=== PATIENT | female | born 1950 | race African-American/Black ===

== ENCOUNTER 2019-04-19 21:14 | Emergency (ER) | payer MEDICARE, MEDICAID ==
[~2019-04-19] VITALS: Ht 157.5 cm; Wt 82.0 kg
[2019-04-19 21:22] VITALS: BP 166/93
[2019-04-19] MEDS ORDERED: IBUPROFEN 600MG TABLET PO ONE (22:45)
[2019-04-19] MEDS: TETANUS, DIPHTHERIA, PERTUSSIS VAC/PF 0.5ML (>7YR OLD) IM ONE (23:02)
[2019-04-19] MEDS: KETOROLAC 30MG/ML VIAL IM ONE (23:11)
== END 2019-04-19 23:16 | disposition home or self-care (01) ==
LOC: ER 21:14
DX: S60.410A Abrasion of right index finger, initial encounter (principal); F12.10 Cannabis abuse, uncomplicated; J45.909 Unspecified asthma, uncomplicated; Z98.890 Other specified postprocedural states; Z88.6 Allergy status to analgesic agent; Z88.8 Allergy status to other drugs, medicaments and biological substances; Z96.659 Presence of unspecified artificial knee joint; W26.0XXA Contact with knife, initial encounter; Y93.89 Activity, other specified; Y92.89 Other specified places as the place of occurrence of the external cause; Y99.8 Other external cause status
CPT/HCPCS: 90471; 90715; 96372; 99283; J1885

== ENCOUNTER 2020-07-20 02:57 | Emergency (ER) | payer MEDICARE, MEDICAID ==
[~2020-07-20] VITALS: Ht 167.6 cm; Wt 78.0 kg
[2020-07-20 04:31] LABS: BG BASE EXCESS 2.3 mmol/L (-2.0-2.0); BG CARBOXYHEMOGLOBIN 0.8 % (0.5-1.5); BG DEOXYHEMOGLOBIN 6.5 % (0.0-5.0); BG HCO3 ACT 27.8 mmol/L (22.0-26.0); BG METHEMOGLOBIN 0.5 % (0.0-1.5); BG OXYGEN SATURATION 93.4 % (92.0-98.5); BG OXYHEMOGLOBIN 92.2 % (94.0-97.0); BG PCO2 46.5 mmHg (35.0-45.0); BG PH 7.394 (7.350-7.450); BG SAMPLE SITE RIGHT RADIAL; BG TOTAL HEMOGLOBIN 13.6 g/dL (12.0-18.0); BG VENT MODE ROOM AIR
[2020-07-20 05:00] VITALS: BP 122/71
== END 2020-07-20 05:27 | disposition home or self-care (01) ==
LOC: ER 03:24
DX: T59.91XA Toxic effect of unspecified gases, fumes and vapors, accidental (unintentional), initial encounter (principal); G47.00 Insomnia, unspecified; Y92.019 Unspecified place in single-family (private) house as the place of occurrence of the external cause; Z88.8 Allergy status to other drugs, medicaments and biological substances; Z96.659 Presence of unspecified artificial knee joint
CPT/HCPCS: 36600; 82375; 82805; 99283

== ENCOUNTER 2020-07-23 17:01 | Emergency (ER) | payer MEDICARE, MEDICAID ==
[~2020-07-23] VITALS: Ht 167.6 cm; Wt 77.0 kg
[2020-07-23] MEDS ORDERED: HYDROCODONE/ACETAMINOPHEN 5/325MG TABLET PO ONE (17:30)
[2020-07-23 19:56] VITALS: BP 142/79
== END 2020-07-23 20:00 | disposition home or self-care (01) ==
LOC: ER 17:04
DX: S09.8XXA Other specified injuries of head, initial encounter (principal); S40.012A Contusion of left shoulder, initial encounter; S60.222A Contusion of left hand, initial encounter; W01.0XXA Fall on same level from slipping, tripping and stumbling without subsequent striking against object, initial encounter; Y93.9 Activity, unspecified; Y92.9 Unspecified place or not applicable; Z88.8 Allergy status to other drugs, medicaments and biological substances; Z98.890 Other specified postprocedural states
CPT/HCPCS: 73030; 73130; 93005; 99285

== ENCOUNTER 2020-07-30 04:06 | Emergency (ER) | payer MEDICARE, MEDICAID ==
[~2020-07-30] VITALS: Ht 167.6 cm; Wt 75.0 kg
[2020-07-30] MEDS ORDERED: ACETAMINOPHEN 500MG TABLET PO ONE (04:30)
[2020-07-30] MEDS ORDERED: MORPHINE SULFATE 4 MG/ML CPJ (NOT FOR IM USE) IV ONE (04:30)
[2020-07-30] MEDS ORDERED: ONDANSETRON HCL 4MG/2ML INJ IV ONE (04:30)
[2020-07-30 07:02] LABS: CHLORIDE 109 mEq/L (98-107)
[2020-07-30 07:04] LABS: BASOPHILS % 0.5 % (0.0-2.0); EOSINOPHILS % 1.9 % (0.0-5.0); HEMATOCRIT. 40.5 % (36.0-48.0); HEMOGLOBIN. 12.8 g/dL (12.0-16.0); MEAN CORPUSCULAR HEMOGLOBIN 28.3 pg (28.0-32.0); MEAN CORPUSCULAR VOLUME 89.5 fL (81.0-99.0); MEAN PLATELET VOLUME 8.7 fl (7.4-10.4); MONOCYTES % 8.7 % (2.0-8.0); NEUTROPHILS % 39.9 % (40.0-76.0); PLATELET 224 x1000/uL (130-400); RED BLOOD CELL COUNT 4.52 mill/uL (4.2-5.4); RED CELL DISTRIBUTION WIDTH 16.6 % (11.6-14.6)
[2020-07-30] MEDS ORDERED: IBUPROFEN 600MG TABLET PO ONE (08:45)
[2020-07-30 09:28] LABS: CLARITY URINE CLEAR (CLEAR); COLOR URINE YELLOW (YELLOW); KETONES URINE NEGATIVE (NEGATIVE); LEUKOCYTE ESTERASE URINE TRACE (NEGATIVE); NITRITE URINE NEGATIVE (NEGATIVE); OCCULT BLOOD URINE NEGATIVE (NEGATIVE); PROTEIN URINE NEGATIVE (NEGATIVE); SPECIFIC GRAVITY URINE 1.008 (1.005-1.030); UROBILINOGEN URINE 0.2 E.U./dL (0.2-1.0)
[2020-07-30 10:34] VITALS: BP 154/76
== END 2020-07-30 10:35 | disposition home or self-care (01) ==
LOC: ER 04:06
DX: M25.551 Pain in right hip (principal); W19.XXXA Unspecified fall, initial encounter; Z91.81 History of falling; Y93.9 Activity, unspecified; Y92.9 Unspecified place or not applicable; F32.9 Major depressive disorder, single episode, unspecified; G47.00 Insomnia, unspecified; Z88.8 Allergy status to other drugs, medicaments and biological substances
CPT/HCPCS: 36415; 70450; 71045; 72125; 72170; 73700; 80048; 81003; 85025; 87086; 93005; 96374; 96375; 99285; J2270; J2405

== ENCOUNTER 2021-03-21 16:20 | Emergency (ER) | payer MEDICARE, MEDICAID ==
[~2021-03-21] VITALS: Ht 157.5 cm; Wt 70.0 kg
[2021-03-21] MEDS ORDERED: IBUPROFEN 400MG TABLET PO ONE (20:15)
[2021-03-21] MEDS ORDERED: IBUP-2028 MT (20:53)
[2021-03-21 22:45] VITALS: BP 142/79
== END 2021-03-21 22:47 | disposition home or self-care (01) ==
LOC: ER 16:20
DX: S39.012A Strain of muscle, fascia and tendon of lower back, initial encounter (principal); Z88.8 Allergy status to other drugs, medicaments and biological substances; Z98.890 Other specified postprocedural states; W18.30XA Fall on same level, unspecified, initial encounter; Y93.89 Activity, other specified; Y92.89 Other specified places as the place of occurrence of the external cause; Y99.8 Other external cause status
CPT/HCPCS: 29125; 71045; 73030; 73110; 99284

== ENCOUNTER 2021-06-14 17:32 | Emergency (ER) | payer MEDICARE, MEDICAID ==
[~2021-06-14] VITALS: Ht 165.1 cm; Wt 45.0 kg
[~2021-06-14 17:32] MED LIST: IBUP-2028 MT
[2021-06-14] MEDS ORDERED: ONDANSETRON HCL 4MG/2ML INJ IV STA (21:45)
[2021-06-14] MEDS ORDERED: SODIUM CHLORIDE 0.9% 1,000 ML IV ONE (21:45)
[2021-06-14] MEDS ORDERED: KETOROLAC 30MG/ML VIAL IV STA (21:45)
[2021-06-15] MEDS ORDERED: ONDANSETRON HCL 4MG TABLET PO ONE (00:45)
[2021-06-15] MEDS: IBUPROFEN 600MG TABLET PO ONE ×2 (01:05→01:07)
[2021-06-15 01:35] VITALS: BP 145/110
[2021-06-15 01:35] LABS: BASOPHILS % 0.4 % (0.0-2.0); EOSINOPHILS % 0.8 % (0.0-5.0); HEMATOCRIT. 46.6 % (36.0-48.0); HEMOGLOBIN. 15.3 g/dL (12.0-16.0); LYMPHOCYTES % 49.9 % (20.0-50.0); MEAN CORPUSCULAR HEMOGLOBIN 31.3 pg (28.0-32.0); MEAN CORPUSCULAR VOLUME 95.3 fL (81.0-99.0); MEAN PLATELET VOLUME 7.3 fl (7.4-10.4); MONOCYTES % 6.8 % (2.0-8.0); NEUTROPHILS % 42.1 % (40.0-76.0); PLATELET 220 x1000/uL (130-400); RED BLOOD CELL COUNT 4.89 mill/uL (4.2-5.4); RED CELL DISTRIBUTION WIDTH 13.5 % (11.6-14.6)
[2021-06-15 01:37] LABS: CHLORIDE 104 mEq/L (98-107)
[2021-06-15 01:40] LABS: CLARITY URINE CLEAR (CLEAR); COLOR URINE YELLOW (YELLOW); KETONES URINE 2+ (NEGATIVE); LEUKOCYTE ESTERASE URINE NEGATIVE (NEGATIVE); NITRITE URINE NEGATIVE (NEGATIVE); OCCULT BLOOD URINE TRACE (NEGATIVE); PROTEIN URINE NEGATIVE (NEGATIVE); SPECIFIC GRAVITY URINE 1.013 (1.005-1.030); UROBILINOGEN URINE 0.2 E.U./dL (0.2-1.0)
== END 2021-06-15 03:52 | disposition home or self-care (01) ==
LOC: ER 17:32
DX: R10.9 Unspecified abdominal pain (principal); Z88.8 Allergy status to other drugs, medicaments and biological substances; Z90.49 Acquired absence of other specified parts of digestive tract; Z96.649 Presence of unspecified artificial hip joint; Z96.659 Presence of unspecified artificial knee joint
CPT/HCPCS: 36415; 74176; 80053; 81003; 83690; 85025; 96361; 96374; 96375; 99284; J1885; J2405; J7030; Q0162

== ENCOUNTER 2021-11-02 15:55 | Emergency (ER) | payer MEDICARE, MEDICAID ==
[~2021-11-02] VITALS: Ht 165.1 cm; Wt 79.0 kg
[2021-11-02] MEDS ORDERED: ACETAMINOPHEN 325MG TABLET PO STA (17:51)
[2021-11-02] MEDS ORDERED: IBUP-2029 MT (20:05)
[2021-11-02] MEDS ORDERED: ACETAMINOPHEN 325MG TABLET PO SCH (20:15)
[2021-11-02 21:20] VITALS: BP 144/85
== END 2021-11-02 21:20 | disposition home or self-care (01) ==
LOC: ER 15:55
DX: S60.222A Contusion of left hand, initial encounter (principal); S83.8X2A Sprain of other specified parts of left knee, initial encounter; W01.0XXA Fall on same level from slipping, tripping and stumbling without subsequent striking against object, initial encounter; Y93.89 Activity, other specified; Y92.89 Other specified places as the place of occurrence of the external cause; Z88.8 Allergy status to other drugs, medicaments and biological substances; Z96.649 Presence of unspecified artificial hip joint; Z96.659 Presence of unspecified artificial knee joint; Z98.890 Other specified postprocedural states
CPT/HCPCS: 73030; 73130; 73502; 73562; 99284

== ENCOUNTER 2022-03-06 03:00 | Inpatient (IN) | payer MEDICARE, MEDICAID ==
[~2022-03-06] VITALS: Ht 157.5 cm; Wt 66.2 kg
[~2022-03-06 03:00] MED LIST changes: +IBUP-2029 MT
[2022-03-06] MEDS ORDERED: ONDANSETRON HCL 4MG/2ML INJ IV STA (03:43)
[2022-03-06] MEDS ORDERED: MORPHINE SULFATE 4 MG/ML CPJ (NOT FOR IM USE) IV STA (03:43)
[2022-03-06] MEDS ORDERED: SODIUM CHLORIDE 0.9% 1,000 ML IV ONE (03:45)
[2022-03-06 04:53] LABS: BASOPHILS % 0.7 % (0.0-2.0); EOSINOPHILS % 2.3 % (0.0-5.0); HEMATOCRIT. 39.9 % (36.0-48.0); HEMOGLOBIN. 12.7 g/dL (12.0-16.0); LYMPHOCYTES % 43.6 % (20.0-50.0); MEAN CORPUSCULAR HEMOGLOBIN 30.2 pg (28.0-32.0); MEAN CORPUSCULAR VOLUME 95.2 fL (81.0-99.0); MEAN PLATELET VOLUME 7.5 fl (7.4-10.4); MONOCYTES % 6.6 % (2.0-8.0); NEUTROPHILS % 46.8 % (40.0-76.0); PLATELET 286 x1000/uL (130-400); RED BLOOD CELL COUNT 4.19 mill/uL (4.2-5.4); RED CELL DISTRIBUTION WIDTH 14.3 % (11.6-14.6)
[2022-03-06 05:05] LABS: CHLORIDE 98 mEq/L (98-107)
[2022-03-06 05:10] LABS: PARTIAL THROMBOPLASTIN TIME 24.9 sec (23.4-31.0); PROTHROMBIN TIME 10.7 sec (9.6-11.0)
[2022-03-06 05:34] LABS: CLARITY URINE CLEAR (CLEAR); COLOR URINE YELLOW (YELLOW); KETONES URINE NEGATIVE (NEGATIVE); LEUKOCYTE ESTERASE URINE TRACE (NEGATIVE); NITRITE URINE NEGATIVE (NEGATIVE); OCCULT BLOOD URINE NEGATIVE (NEGATIVE); PH URINE 6.5 (4.5-8.0); PROTEIN URINE NEGATIVE (NEGATIVE); SPECIFIC GRAVITY URINE 1.008 (1.005-1.030); UROBILINOGEN URINE 0.2 E.U./dL (0.2-1.0)
[2022-03-06] MEDS ORDERED: ASPIRIN 325MG EC TABLET PO ONE (06:30)
[2022-03-06] MEDS ORDERED: MAGNESIUM/ALUMINUM HYDROXIDE/SIMETHICONE 30ML UDC PO PRN (08:45)
[2022-03-06] MEDS ORDERED: GUAIFENESIN 200MG/10ML SUGAR FREE UDC PO PRN (08:45)
[2022-03-06] MEDS ORDERED: ONDANSETRON HCL 4MG/2ML INJ IV PRN (08:45)
[2022-03-06] MEDS ORDERED: IPRATROPIUM/ALBUTEROL 0.5-3(2.5)MG/3ML NEB NEB PRN (08:45)
[2022-03-06] MEDS ORDERED: DOCUSATE SODIUM 100MG CAPSULE PO PRN (08:45)
[2022-03-06] MEDS ORDERED: CLONIDINE 0.1MG TABLET PO PRN (08:45)
[2022-03-06] MEDS ORDERED: ZOLPIDEM TARTRATE 5MG TABLET PO PRN (08:45)
[2022-03-06] MEDS ORDERED: ACETAMINOPHEN 325MG TABLET PO PRN ×2 (08:45)
[2022-03-06] MEDS ORDERED: NITROGLYCERIN 0.4MG TABLET SL SL PRN (08:45)
[2022-03-06 09:30] VITALS: BP 154/95
[2022-03-06] MEDS ORDERED: QUET100T MT (09:51)
[2022-03-06] MEDS ORDERED: LEVO25TA7 MT (09:51)
[2022-03-06] MEDS ORDERED: HYDR-4009 MT (09:51)
[2022-03-06 09:54] VITALS: BP 154/95
[2022-03-06] MEDS: FAMOTIDINE 20MG TABLET PO SCH ×2 (10:22→21:46)
[2022-03-06] MEDS: ASPIRIN 325MG EC TABLET PO SCH (10:22)
[2022-03-06] MEDS: ENOXAPARIN 40MG/0.4ML SYR SUBCUT SCH (10:22)
[2022-03-06] MEDS: KETOROLAC 15MG/ML VIAL IV PRN ×2 (10:34→17:14)
[2022-03-06 12:30] VITALS: BP 140/74
[2022-03-06 16:43] LABS: CREATINE KINASE 42 IU/L (26-192); CREATINE KINASE MB FRACTION < 1.0 ng/mL (0.5-3.6)
[2022-03-06 16:45] VITALS: BP 113/58
[2022-03-06 16:50] LABS: ETHANOL BLOOD < 10 mg/dL; T4 FREE 0.88 ng/dL (0.76-1.46)
[2022-03-06 16:53] LABS: HDL CHOLESTEROL 80 mg/dL (40-59); LDL CHOLESTEROL 77 mg/dL (5-100)
[2022-03-06 20:00] VITALS: BP 117/62
[2022-03-07] VITALS: BP 131/59
[2022-03-07] MEDS ORDERED: HYDROCODONE/ACETAMINOPHEN 5/325MG TABLET PO PRN (00:45)
[2022-03-07 04:00] VITALS: BP 143/81
[2022-03-07 06:49] LABS: BASOPHILS % 0.5 % (0.0-2.0); EOSINOPHILS % 2.9 % (0.0-5.0); HEMATOCRIT. 36.9 % (36.0-48.0); HEMOGLOBIN. 11.9 g/dL (12.0-16.0); LYMPHOCYTES % 47.3 % (20.0-50.0); MEAN CORPUSCULAR HEMOGLOBIN 30.4 pg (28.0-32.0); MEAN CORPUSCULAR VOLUME 93.9 fL (81.0-99.0); MEAN PLATELET VOLUME 7.2 fl (7.4-10.4); MONOCYTES % 5.7 % (2.0-8.0); NEUTROPHILS % 43.6 % (40.0-76.0); PLATELET 274 x1000/uL (130-400); RED BLOOD CELL COUNT 3.93 mill/uL (4.2-5.4); RED CELL DISTRIBUTION WIDTH 14.2 % (11.6-14.6)
[2022-03-07 07:20] LABS: CHLORIDE 102 mEq/L (98-107)
[2022-03-07 07:33] LABS: CREATINE KINASE 36 IU/L (26-192); CREATINE KINASE MB FRACTION < 1.0 ng/mL (0.5-3.6); PHOSPHORUS 3.4 mg/dL (2.5-4.9)
[2022-03-07 08:45] VITALS: BP 154/80
[2022-03-07] MEDS: ENOXAPARIN 40MG/0.4ML SYR SUBCUT SCH (09:12)
[2022-03-07] MEDS: FAMOTIDINE 20MG TABLET PO SCH (09:12)
[2022-03-07] MEDS: ASPIRIN 325MG EC TABLET PO SCH (09:13)
[2022-03-07 12:20] VITALS: BP 150/81
[2022-03-07 12:28] VITALS: BP 150/81
== END 2022-03-07 14:50 | disposition home or self-care (01) | DRG 303 ==
LOC: ER 03:14 → 6WST 05:21 → EDBEDREQ 05:27 → EDBEDREQTM 05:27 → SUPCPDRO 08:39 → ENRESERV 08:39
PROVIDERS: ADMIT Internal Medicine; ATTEND Internal Medicine
DX: I25.10 Atherosclerotic heart disease of native coronary artery without angina pectoris (principal); N39.0 Urinary tract infection, site not specified; E87.1 Hypo-osmolality and hyponatremia; I10 Essential (primary) hypertension; E03.9 Hypothyroidism, unspecified; J45.909 Unspecified asthma, uncomplicated; Z82.49 Family history of ischemic heart disease and other diseases of the circulatory system; Z96.612 Presence of left artificial shoulder joint; Z88.8 Allergy status to other drugs, medicaments and biological substances; Z96.649 Presence of unspecified artificial hip joint; Z96.651 Presence of right artificial knee joint; M47.9 Spondylosis, unspecified
CPT/HCPCS: 36415; 71045; 74176; 80053; 80061; 80320; 81003; 82550; 82553; 82607; 83036; 83735; 83880; 84100; 84439; 84443; 84484; 85025; 93005; 93306; 93970; 99285; J1650; J1885; J2270; J2405; J7030; G0480

== ENCOUNTER 2023-04-01 15:45 | Emergency (ER) | payer MEDICARE, MEDICAID ==
[~2023-04-01] VITALS: Ht 167.6 cm; Wt 91.0 kg
[~2023-04-01 15:45] MED LIST changes: +HYDR-4009 MT; -IBUP-2029 MT; +LEVO25TA7 MT; +QUET100T MT
[2023-04-01 16:24] VITALS: BP 180/86; PULSE 98; RESP 18; TEMP 98.3; O2SAT 99
[2023-04-01] MEDS ORDERED: KETOROLAC 30MG/ML VIAL IM ONE (19:30)
[2023-04-01] MEDS ORDERED: IBUP-2029 MT (19:46)
== END 2023-04-01 23:15 | disposition home or self-care (01) ==
LOC: ER 15:45
DX: M19.072 Primary osteoarthritis, left ankle and foot (principal); R09.A9 Foreign body sensation, other site; I10 Essential (primary) hypertension; E03.9 Hypothyroidism, unspecified; Z96.651 Presence of right artificial knee joint; Z98.890 Other specified postprocedural states; Z88.8 Allergy status to other drugs, medicaments and biological substances
CPT/HCPCS: 73630; 99283